=== PATIENT | female | born 1955 | race Caucasian/White ===

== ENCOUNTER 2020-10-29 09:45 | Outpatient (CLI) | payer MEDICARE, SELFPAY ==
--- NOTE | ~2020-10-29 | MM_ITS ---
EXAMINATION: MM scrn osmin implant LT w olivia HISTORY: Screening mammogram. Status post right mastectomy in 2004 right breast cancer. TECHNIQUE: Craniocaudal and mediolateral oblique 3-D tomosynthesis images with implant displacement a nd synthetic 2-D images were generated. Craniocaudal and mediolateral oblique views of the breasts wi thout implant displacement were obtained using full field digital mammography. CAD analysis was submi tted and interpreted. COMPARISON: 09/27/2018, 08/02/2017, 07/29/2016 left screening implant digital mammogram examinations BREAST PARENCHYMAL COMPOSITION: There are scattered areas of fibroglandular density. FINDINGS: Left breast implant with surrounding prominent calcifications. Small occasional breast masses are noted. Diagnostic left mammogram and left breast ultrasound examin ation are recommended. IMPRESSION: 1. Left breast masses 2. Diagnostic left mammogram and left breast ultrasound examination are recommended BI-RADS Category 0: Incomplete: Needs additional imaging evaluation. Reviewed, dictated and finalized at location A. IMPRESSION: 1. Left breast masses 2. Diagnostic left mammogram and left breast ultrasound examination are recomme nded BI-RADS Category 0: Incomplete: Needs additional imaging evaluation.
--- NOTE | ~2020-10-29 | DEXA_ITS ---
Bone Density Report Name: Olga Lugo Age: 65 Sex: Female Ethnicity: White Date of : 1955 Indication: osteopenia; monitoring treatment; height loss; prior fracture; cancer; postmenopausal Referring Provider: ROSHNI GALVEZ Study: Bone densitometry was performed. Exam Date: October 29, 2020 Accession number: [id number] Bone Density: Region BMD T-score Z-score Classification AP Spine (L1-L4) 0.852 -1.8 0.0 Osteopenia Femoral Neck (Left) 0.607 -2.2 -0.6 Osteopenia Total Hip (Left) 0.725 -1.8 -0.5 Osteopenia Total Hip Bilateral Avg 0.729 -1.8 -0.5 Osteopenia Femoral Neck (Right) 0.607 -2.2 -0.6 Osteopenia Total Hip (Right) 0.731 -1.7 -0.5 Osteopenia World Health Organization criteria for BMD impression classify patients as: Normal (T-score at or above -1.0), Osteopenia (T-score between -1.0 and -2.5), or Osteoporosis (T-score at or below -2.5). 10-year Fracture Risk: FRAX not reported because: Treated for osteoporosis Previous Exams: Region Exam Age BMD T-score BMD Change BMD Change Date g/cm2 vs Baseline vs Previous AP Spine(L1-L4) 10/29/2020 65 0.852 -1.8 -0.031(-3.5%)# -0.017(-2.0%) 09/27/2018 63 0.869 -1.6 -0.014(-1.6%)# -0.014(-1.6%) 07/29/2016 61 0.883 -1.5 0.000(0.0%)# 0.013(1.5%) 05/30/2014 59 0.869 -1.6 -0.013(-1.5%)# -0.013(-1.5%)# 04/17/2012 57 0.882 -1.5 Total Hip(Left) 10/29/2020 65 0.725 -1.8 -0.067(-8.5%)# -0.030(-4.0%)* 09/27/2018 63 0.755 -1.5 -0.037(-4.7%)# 0.025(3.4%) 07/29/2016 61 0.731 -1.7 -0.062(-7.8%)# -0.035(-4.6%)* 05/30/2014 59 0.765 -1.4 -0.027(-3.4%)# -0.027(-3.4%)# 04/17/2012 57 0.792 -1.2 Total Hip(Right) 10/29/2020 65 0.731 -1.7 -0.090(-11.0%) -0.055(-7.0%)* 09/27/2018 63 0.786 -1.3 -0.036(-4.3%)# 0.037(5.0%)* 07/29/2016 61 0.748 -1.6 -0.073(-8.9%)# -0.024(-3.2%) 05/30/2014 59 0.773 -1.4 -0.048(-5.9%)# -0.048(-5.9%)# 04/17/2012 57 0.821 -1.0 *Denotes significance at 95% confidence level, LSC for AP Spine = 0.022 g/cm2, LSC for Total Hip = 0.027 g/cm2 Clinical Information Provided by Patient: Has had a low trauma fracture Is being treated for osteoporosis Has used the following medications: Evista (i.e. raloxifene), Vitamin D Has the following medical conditions: Cancer Patient maximum height was 65.5 Menopause Age: 55 No regular weight bearing exercise Drinks caffeinated beverages Onset of menses at age 12 Number of children 2
== END 2020-10-29 09:46 | disposition home or self-care (01) ==
LOC: ANHIMG 09:52
PROVIDERS: PCP Internal Medicine; Visit Provider Obstetrics & Gynecology Gynecology
DX: Z12.31 Encounter for screening mammogram for malignant neoplasm of breast (principal); Z78.0 Asymptomatic menopausal state; R92.8 Other abnormal and inconclusive findings on diagnostic imaging of breast
CPT/HCPCS: 77063; 77067; 77080

== ENCOUNTER 2020-11-21 15:00 | Emergency (ER) | payer MEDICARE, SELFPAY ==
--- NOTE | 2020-11-21 15:06 | ED.URI ---
HPI - URI/Sore Throat General Chief Complaint: Upper Respiratory Infection Stated Complaint: ear/nose throat Time Seen by Provider: 11/21/20 15:06 Source: patient and RN notes reviewed History of Present Illness HPI Narrative: Patient is a 65-year-old female who presents the urgent care with complaints of congestion, sore throat, cough and ear fullness. Patient states that she has had symptoms since Tuesday and her rapid Covid test was negative on . Patient denies of any fever, nausea, vomiting. States that she has been taking Tylenol for her symptoms. Reports of extreme fatigue. States that she has been vaccinated and denies of any Covid contacts. No other acute complaints. No acute distress noted. Patient aware of the plan of care. Some parts of this dictation were generated by voice recognition software and may contain typographical and/or grammatical inaccuracies. Related Data Home Medications Medication Instructions Recorded Confirmed carvedilol 11/21/20 hydrochlorothiazide 11/21/20 lisinopril 11/21/20 raloxifene mg 11/21/20 Allergies Allergy/AdvReac Type Severity Reaction Status Date / Time No Known Allergies Allergy Unverified 02/27/16 13:58 Review of Systems Review of Systems: CONSTITUTIONAL: Denies fever, chills, or sweats. EYES: Denies visual changes, redness, or discharge. ENT: Reports of congestion, postnasal drainage, sore throat, bilateral ear fullness CARDIOVASCULAR: Denies chest pain, palpitations, or edema. RESPIRATORY: Reports of nonproductive cough without dyspnea GASTROINTESTINAL: Denies abdominal pain, nausea, vomiting, or diarrhea. GENITOURINARY: Denies dysuria or hematuria. SKIN: Denies rash or itching. MUSCULOSKELETAL: Denies back pain, joint pain, or myalgia. NEUROLOGIC: Denies headache, numbness, or weakness. All other systems reviewed are negative, except as documented in HPI. [facility] Family History Family History (Updated 11/29/13 @ 07:13 by DOCTOR UNKNOWN) Grandparent Family history of coronary artery disease Social History Social History Alcohol intake: current Comments At the time of my signature, I reviewed and agree with the nursing past medical, surgical, social, and family history. There is no relevant family history pertinent to the patient complaint. Exam Narrative: GENERAL: This is a well-nourished, well-developed patient, in no apparent distress. HEAD: normocephalic, atraumatic. Moderate frontal sinus tenderness EYES: PERRL. Sclera clear/white. Vision is grossly intact. EARS: External ears normal, auditory canals clear and without drainage, TMs normal without perforation. Hearing grossly intact. NOSE: External nose normal with no obvious nasal discharge, nares without redness, no rhinorrhea. THROAT: Mucous membranes moist, posterior pharynx clear. Moderate postnasal drainage NECK: Neck supple, non-tender without lymphadenopathy CARDIOVASCULAR: Regular rate and rhythm without murmurs, gallops, or rubs. RESPIRATORY: Clear to auscultation. Breath sounds equal bilaterally. No wheezes, rales, or rhonchi. SKIN: warm, intact with no suspicious lesions or rash, good texture and turgor. NEURO: awake, alert, and oriented to person, place and time. There were no obvious focal neurologic abnormalities. EXTREMITIES: No clubbing, cyanosis, or edema. Course Vital Signs Vital signs: Vital Signs Temperature 98.6 F 11/21/20 15:10 Pulse Rate 85 11/21/20 15:10 Respiratory Rate 16 11/21/20 15:10 Blood Pressure 138/67 11/21/20 15:10 Pulse Oximetry 100 11/21/20 15:10 Temperature 98.6 F 11/21/20 15:10 Pulse Rate 85 11/21/20 15:10 Respiratory Rate 16 11/21/20 15:10 Blood Pressure 138/67 11/21/20 15:10 Pulse Oximetry 100 11/21/20 15:10 Reviewed MDM - URI/Sore Throat MDM Narrative Medical decision making narrative: Advised the patient to complete steroid regimen as prescribed. Be sure you are eating and drinking with the
[2020-11-21 15:10] VITALS: BP 138/67; PULSE 85; RESP 16; TEMP 37; O2SAT 100
== END 2020-11-21 15:33 | disposition home or self-care (01) ==
PROVIDERS: Emergency Provider Nurse Practitioner Family; PCP Internal Medicine
DX: J32.9 Chronic sinusitis, unspecified (principal); I10 Essential (primary) hypertension
CPT/HCPCS: 99213; G0463

== ENCOUNTER 2020-11-25 13:20 | Outpatient (CLI) | payer MEDICARE, SELFPAY ==
--- NOTE | ~2020-11-25 | MMUS_ITS ---
EXAMINATION: MM diag osmin implant LT w olivia, US breast LT limited HISTORY: Possible left breast masses on screening mammogram TECHNIQUE: Craniocaudal, mediolateral, and mediolateral oblique spot compression 3-D tomosynthesis im ages with implant displacement of the left breast were performed and synthetic 2-D images were genera salo. Mediolateral view of the left breast without implant displacement was obtained using full field digital mammography. CAD analysis was submitted and interpreted. High resolution limited left breast ultrasound was performed. COMPARISON: Prior mammograms dating back to 05/25/2013 FINDINGS: MAMMOGRAPHIC FINDINGS: There is a return to baseline fibroglandular appearance with spot compression of the breasts in the a reas questioned on screening mammogram. ULTRASOUND: No suspicious cystic or solid mass is identified to correlate with the mammographic findings in quest ion. There is a cyst with thin septation in the upper outer quadrant of the breast at the 2:00 locati on 5 cm from the nipple. IMPRESSION: 1. No mammographic or sonographic evidence of malignancy. 2. Recommend routine screening mammography in one year. BI-RADS Category 2: Benign finding(s). Reviewed, dictated and finalized at location A. IMPRESSION: 1. No mammographic or sonographic evidence of malignancy. 2. Recommend routine screening mammography in one year. BI-RADS Category 2: Benign finding(s).
== END 2020-11-25 13:21 | disposition home or self-care (01) ==
PROVIDERS: PCP Internal Medicine; Visit Provider Obstetrics & Gynecology Gynecology
DX: R92.8 Other abnormal and inconclusive findings on diagnostic imaging of breast (principal)
CPT/HCPCS: 76642; 77061; 77065; G0279

== ENCOUNTER 2021-01-18 15:22 | Emergency (ER) | payer MEDICARE, SELFPAY ==
--- NOTE | ~2021-01-18 | XR_ITS ---
EXAMINATION: XR wrist LT min 3V DATE: 01/18/2021 15:35 INDICATION: Left wrist injury. TECHNIQUE: 4 views of left wrist were obtained. COMPARISON: None. FINDINGS: Bone alignment is normal. No fracture. There is mild osteoarthritis of triscaphe joint, fir st carpometacarpal joint, second metacarpophalangeal joint, and first interphalangeal joint. IMPRESSION: 1. Mild polyarticular osteoarthritis. Reviewed, dictated and finalized at location A.
[2021-01-18 15:29] VITALS: BP 123/61; PULSE 83; RESP 16; TEMP 36.7; O2SAT 100
[2021-01-18 15:30] VITALS: BP 123/61; PULSE 83; RESP 16; TEMP 36.7; O2SAT 100
--- NOTE | 2021-01-18 15:31 | ED.UPPEXIN ---
HPI - Extremity Injury (Upper) General Chief Complaint: Extremity Injury, Upper Stated Complaint: INJURED L WRIST Time Seen by Provider: 01/18/21 15:36 Source: patient and RN notes reviewed Mode of arrival: ambulatory Limitations: no limitations History of Present Illness HPI narrative: 65-year-old female presents concern for left wrist pain. Reports yesterday she fell at the grocery store. 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 Reports little to no pain at rest, pain with range of motion. She denies intervention. She denies decreased sensation, range of motion. complaint: injury to: left and wrist Related Data Home Medications Medication Instructions Recorded Confirmed carvedilol 11/21/20 hydrochlorothiazide 11/21/20 lisinopril 11/21/20 raloxifene mg 11/21/20 Allergies Allergy/AdvReac Type Severity Reaction Status Date / Time No Known Allergies Allergy Unverified 02/27/16 13:58 Review of Systems Review of Systems: CONSTITUTIONAL: Denies malaise, chills, sweats, or fever. SKIN: Denies redness, bruising, open skin MUSCULOSKELETAL: Reports left wrist pain and decreased acid polymerization operator strength NEUROLOGIC: Denies numbness, weakness All systems reviewed & are unremarkable except as noted in HPI and below PMFSH Family History Family History (Updated 11/29/13 @ 07:13 by DOCTOR UNKNOWN) Grandparent Family history of coronary artery disease Social History Social History Alcohol intake: current Comments At time of signature, agree with nursing past medical, surgical, social and family history. There is no relevant family history pertinent to the presenting complaint Exam Narrative: GENERAL: Well-appearing, well-nourished, and in no acute distress. HEAD: Normocephalic, atraumatic. EYES: PERRLA, conjunctivae clear NECK: Supple. CHEST: Speaks in full sentences. No respiratory distress. HEART: Regular rate and rhythm. Normal and equal peripheral pulses. EXTREMITIES: Left wrist, hand, digits have normal strength and sensation, normal range of motion. No edema or ecchymosis. 5/5 strength with digit flexion and extension. Normal sensation with sensitivity to light touch and pain. No point tenderness. No open wounds, no skin tenting, no devitalized tissue or atrophy, no trophic changes, no obvious deformity, alignment normal, nearby joints and structures intact. Distal pulses palpable and equal bilaterally, skin warm, dry, pink. Capillary refill less than 3 seconds. SKIN: Warm, dry, no rash. NEURO: Alert and oriented x3. PSYCH: Normal mood and affect Course Course Emergency Course: Patient is aware of diagnosis, understands and agrees to treatment plan. Anticipatory guidance given. Patient agrees to follow-up as directed and is aware of reasons to seek care at the emergency department. Portions of this record may have been created with voice recognition software Vital Signs Vital signs: Vital Signs Temperature 98.1 F 01/18/21 15:29 Pulse Rate 83 01/18/21 15:29 Respiratory Rate 16 01/18/21 15:29 Blood Pressure 123/61 01/18/21 15:29 Pulse Oximetry 100 01/18/21 15:29 Temperature 98.1 F 01/18/21 15:30 Pulse Rate 83 01/18/21 15:30 Respiratory Rate 16 01/18/21 15:30 Blood Pressure 123/61 01/18/21 15:30 Pulse Oximetry 100 01/18/21 15:30 Reviewed. MDM - Extremity Injury (Upper) MDM Narrative Medical decision making narrative: Patients injury and pain is consistent with musculoskeletal etiology. No signs of neurological or vascular compromise on exam. Compartments and tissues are soft without signs of compartment syndrome. Pain is felt appropriate for further evaluation on an outpatient basis. Imaging Data My impression: Images reviewed, interpreted by radiologist, agree, see report. Radiologist's impression: EXAMINATION: XR wrist LT min 3V DATE: 01/18/2021 15:35 INDICATION: Left wrist injury. TECHNIQUE: 4 views of left wrist were
== END 2021-01-18 15:52 | disposition home or self-care (01) ==
PROVIDERS: Emergency Provider Nurse Practitioner
DX: S63.502A Unspecified sprain of left wrist, initial encounter (principal); S66.912A Strain of unspecified muscle, fascia and tendon at wrist and hand level, left hand, initial encounter; W19.XXXA Unspecified fall, initial encounter; Y92.512 Supermarket, store or market as the place of occurrence of the external cause; I10 Essential (primary) hypertension
CPT/HCPCS: 73110; 99213; G0463

== ENCOUNTER 2022-04-20 17:18 | Outpatient (CLI) | payer MEDICARE, SELFPAY ==
--- NOTE | ~2022-04-20 | MM_ITS ---
EXAMINATION: MM scrn osmin implant LT w olivia HISTORY: Screening mammogram TECHNIQUE: Craniocaudal and mediolateral oblique 3-D tomosynthesis images with implant displacement a nd synthetic 2-D images were generated. Craniocaudal and mediolateral oblique views of the breasts wi thout implant displacement were obtained using full field digital mammography. CAD analysis was submi tted and interpreted. COMPARISON: 11/21/2020 diagnostic left mammogram and limited left breast ultrasound examination 10/29/2020, 09/27/2018, 08/02/2017 left implant screening mammogram examinations BREAST PARENCHYMAL COMPOSITION: There are scattered areas of fibroglandular density. FINDINGS: Status post left augmentation mammoplasty. There is a stable approximately 4 x 7 mm circums cribed opacity in the posterior mid inner left breast, unchanged since 08/02/2017.. No suspicious mass, architectural distortion, malignant calcification, skin thickening or retraction is detected. IMPRESSION: 1. No mammographic evidence of malignancy or significant change since 08/02/2017 2. Routine mammographic screening is recommended BI-RADS Category 2: Benign finding(s). Reviewed, dictated and finalized at location A. SOAKER
== END 2022-04-20 17:19 | disposition home or self-care (01) ==
LOC: ANHIMG 17:19
PROVIDERS: PCP Otolaryngology; Visit Provider Nurse Practitioner
DX: Z12.31 Encounter for screening mammogram for malignant neoplasm of breast (principal)
CPT/HCPCS: 77063; 77067

== ENCOUNTER 2025-02-24 12:43 | Emergency (ER) | payer MEDICARE, SELFPAY ==
[2025-02-24 12:54] VITALS: BP 120/69; PULSE 73; RESP 16; TEMP 36.2; O2SAT 100
--- NOTE | 2025-02-24 13:43 | ED.URI ---
HPI - URI/Sore Throat General Chief Complaint: Upper Respiratory Infection Stated Complaint: flu symptoms Time Seen by Provider: 02/24/25 13:32 Source: patient and RN notes reviewed Mode of arrival: ambulatory Limitations: no limitations History of Present Illness HPI Narrative: 69-year-old female patient presents today with a 3 week history of intermittent sinus pressure, fatigue, body aches, headache. She had some vomiting recently but this has since resolved. Denies any current fever or shortness of breath. She has taken Advil cold and Sinus with some intermittent relief. States she initially got sick while [place] cruise ship at the beginning of the month. Related Data Home Medications ?Medication ?Instructions ?Recorded ?Confirmed ?Last Taken ?Type carvedilol 6.25 mg tablet 11/21/20 Unknown History hydrochlorothiazide 25 mg tablet 11/21/20 Unknown History lisinopril 20 mg tablet 11/21/20 Unknown History raloxifene 60 mg tablet mg 11/21/20 Unknown History escitalopram oxalate 5 mg tablet mg 02/24/25 Unknown History Allergies Allergy/AdvReac Type Severity Reaction Status Date / Time No Known Allergies Allergy Verified 02/24/25 13:12 [facility] Family History Family History Grandparent Family history of coronary artery disease Social History Social History Alcohol intake: current Comments At time of signature, I have reviewed and agree with nursing past medical, surgical, social and family history unless otherwise noted. Please see nursing chart for further information. There is no relevant family history pertinent to the presenting complaint Exam Narrative: GENERAL: Well-appearing, well-nourished, and in no acute distress. HEAD: Normocephalic, atraumatic. EYES: EOMI. No redness or drainage. Conjunctivae normal. ENT: Mucous membranes pink and moist. Nares congested. No rhinorrhea. Tenderness of the bilateral maxillary sinuses. No frontal sinus tenderness. TMs normal bilaterally. Throat normal. Uvula midline. NECK: Normal AROM. Supple. No lymphadenopathy. CHEST: No respiratory distress. Clear to auscultation. HEART: Regular rate and rhythm. No murmur appreciated. EXTREMITIES: Normal range of motion. No edema. SKIN: Warm, dry, no rash. Capillary refill normal. Normal skin turgor. NEURO: No focal deficits. Alert and oriented x3. Gait steady. PSYCH: Normal affect. No signs of depression or anxiety. Course Course Level of Care: Express Care Visit Vital Signs Vital signs: Vital Signs Temperature 97.1 F L 02/24/25 12:54 Pulse Rate 73 02/24/25 12:54 Respiratory Rate 16 02/24/25 12:54 Blood Pressure 120/69 02/24/25 12:54 Pulse Oximetry 100 02/24/25 12:54 Temperature 97.1 F L 02/24/25 12:54 Pulse Rate 73 02/24/25 12:54 Respiratory Rate 16 02/24/25 12:54 Blood Pressure 120/69 02/24/25 12:54 Pulse Oximetry 100 02/24/25 12:54 Reviewed MDM - URI/Sore Throat MDM Narrative Medical decision making narrative: 69-year-old female patient presents today with a 3 week history of intermittent sinus pressure, fatigue, body aches, headache. She had some vomiting recently but this has since resolved. Denies any current fever or shortness of breath. She has taken Advil cold and Sinus with some intermittent relief. States she initially got sick while on a cruise ship at the beginning of the month. Upon exam, patient is mildly ill appearing with nasal congestion and maxillary sinus tenderness bilaterally. Patient's symptoms are likely due to bacterial sinusitis. Will treat with Augmentin. Patient agrees with plan. Vital signs stable. Anticipatory guidance given. Differential Diagnosis Differential diagnosis: Likely upper respiratory infection, sinusitis and viral infection Critical Care Time Critical Care Time Critical Care Time: No Discharge Plan Discharge Clinical Impression: Sinusitis Qualifiers: Sinusitis location: maxillary Chronicity: acute Recurrence: non-recurrent Qualified Code(s): J01.00 - Acute maxillary sinusitis, unspecified Patient Disposition: Home Condition: Stable Instructions: Antibiotic Form, Sinusitis (ED) Additional Instructions: Please take the Augmentin as prescribed until gone. Continue [id number] medication for symptoms as well. Follow-up with your PCP in 3 days if symptoms are not improving. Patient Language: Japanese Prescriptions: New amoxicillin-pot clavulanate 875-125 mg tablet 1 tablet PO Q12H 7 Days Qty: 14 0RF No Action carvedilol 6.25 mg tablet lisinopril 20 mg tablet raloxifene 60 mg tablet hydrochlorothiazide 25 mg tablet escitalopram oxalate 5 mg tablet Follow-up/Referrals: Roney,Delmer Walters MD [Primary Care Provider] Time of Disposition: 13:46
== END 2025-02-24 13:50 | disposition home or self-care (01) ==
PROVIDERS: Emergency Provider Nurse Practitioner; PCP Internal Medicine
DX: J01.00 Acute maxillary sinusitis, unspecified (principal); I10 Essential (primary) hypertension
CPT/HCPCS: 99213; G0463